=== PATIENT | female | born 1990 | race Two or more races ===

== ENCOUNTER 2017-11-10 23:40 | Emergency (ER) | payer SELFPAY ==
[~2017-11-10] VITALS: Ht 170.2 cm; Wt 50.0 kg
[2017-11-11 01:16] LABS: CLARITY URINE CLEAR (CLEAR); COLOR URINE YELLOW (YELLOW); KETONES URINE 3+ (NEGATIVE); LEUKOCYTE ESTERASE URINE NEGATIVE (NEGATIVE); NITRITE URINE POSITIVE (NEGATIVE); OCCULT BLOOD URINE NEGATIVE (NEGATIVE); PROTEIN URINE 1+ (NEGATIVE); SPECIFIC GRAVITY URINE 1.029 (1.005-1.030)
[2017-11-11] MEDS ORDERED: ONDANSETRON 4MG ODT PO NR (03:45)
[2017-11-11 04:02] LABS: BASOPHILS % 0.3 % (0.0-2.0); EOSINOPHILS % 0.2 % (0.0-5.0); HEMATOCRIT. 42.7 % (36.0-48.0); HEMOGLOBIN. 14.8 g/dL (12.0-16.0); LYMPHOCYTES % 9.7 % (20.0-50.0); MEAN CORPUSCULAR HEMOGLOBIN 30.8 pg (28.0-32.0); MEAN PLATELET VOLUME 6.1 fl (7.4-10.4); MONOCYTES % 7.8 % (2.0-8.0); PLATELET 354 x1000/uL (130-400); RED CELL DISTRIBUTION WIDTH 12.8 % (11.6-14.6)
[2017-11-11 04:06] LABS: INR 1.1; PROTHROMBIN TIME 10.9 sec (9.4-11.6)
[2017-11-11 04:08] LABS: CHLORIDE 100 mEq/L (98-107)
[2017-11-11 05:15] VITALS: BP 112/74
== END 2017-11-11 05:15 | disposition home or self-care (01) ==
LOC: ER 11-11 00:33
DX: N39.0 Urinary tract infection, site not specified (principal); R11.2 Nausea with vomiting, unspecified
CPT/HCPCS: 36415; 80053; 81003; 81025; 83690; 85025; 85610; 99284; Q0162; Z7610